=== PATIENT | female | born 1985 | race Caucasian/White ===

== ENCOUNTER → 2018-06-10 | Outpatient (CLI) | payer OTHER ==
--- NOTE | 2018-06-10 16:16 | RADIOLOGY REPORT (SQ) ---
EXAM DESCRIPTION: NM HIDA SCAN WITH CCK COMPLETED DATE/TIME: 06/10/2018 3:04 pm REASON FOR STUDY: R10.11 RIGHT UPPER QUADRANT PAIN R10.11 RIGHT UPPER QUADRANT PAIN COMPARISON: None. RADIONUCLIDE AND DOSE: DOSAGE RADIONUCLIDE: 5.21 millicuries Tc99m Mebrofenin. DOSAGE CCK: 1.6 micrograms. DOSAGE MORPHINE: Not required. The route of agent administration: Intravenous TECHNIQUE: Serial imaging right upper quadrant up to 60 minutes following injection of radionuclide. CCK injected after gallbladder visualized. LIMITATIONS: None. FINDINGS: LIVER: Normal visualization without areas of photopenia. INTRAHEPATIC BILE DUCTS: Normal size and no delay in visualization. COMMON BILE DUCT: Normal without dilatation. GALLBLADDER: Normal visualization. Calculated ejection fraction of 86%. Normal range is greater th an 35%. PHYSICAL RESPONSE: Patients presenting complaint was reproduced. OTHER: No other significant finding. IMPRESSION: Although CCK injection replicated the patient is presenting complaint, gallbladder eject ion fraction is normal. TECHNICAL DOCUMENTATION: JOB ID: [id number] [employer]- All Rights Reserved Reading location - IP/workstation name: [email or web address]
== END ==
LOC: RAD 13:27
PROVIDERS: ATTEND Physician Assistant Medical
DX: R10.11 Right upper quadrant pain (principal)
CPT/HCPCS: 78227; J2805; A9537

== ENCOUNTER 2019-12-30 16:44 | Emergency (ER) | payer OTHER ==
[2019-12-30 16:50] VITALS: BP 130/86
--- NOTE | 2019-12-30 16:56 | ER Document Report ---
ED Medical Screen (RME) - General Chief Complaint: Abdominal Pain Stated Complaint: ABDOMINAL PAIN Time Seen by Provider: 12/30/19 16:50 Primary Care Provider: RUKHSANA MCFARLAND DO [Primary Care Provider] - Follow up as needed Mode of Arrival: Ambulatory Information source: Patient Notes: Patient reports sneezing 2 hours ago and developing left upper quadrant tender ness. Patient denies any shortness of breath or lightheadedness. Patient does complain of increased pain with movement or deep inspiration. hx: RA, endometriosis, insulin resistance, hypothyroidism I have greeted and performed a rapid initial assessment of this patient. A comprehensive ED assessment and evaluation of the patient, analysis of test results and completion of the medical decision making process will be conducted by additional ED providers. TRAVEL OUTSIDE OF THE [place] IN LAST 30 DAYS: No - Related Data Allergies/Adverse Reactions: sulfamethoxazole [From Bactrim] Allergy (Severe, Verified 12/30/19 16:50) Anaphylaxis trimethoprim [From Bactrim] Allergy (Severe, Verified 12/30/19 16:50) Anaphylaxis morphine [Morphine] Allergy (Intermediate, Verified 12/30/19 16:50) Swelling of hands and/or feet dulaglutide [From Trulicity] Adverse Reaction (Verified 12/30/19 16:50) Vomiting liraglutide [From Victoza] Adverse Reaction (Verified 12/30/19 16:50) VOMITING Past Medical History - Past Medical History Cardiac Medical History: Denies: Hx Coronary Artery Disease, Hx Heart Attack, Hx Hypertension Pulmonary Medical History: Denies: Hx Asthma, Hx Bronchitis, Hx COPD, Hx Pneumonia Neurological Medical History: Denies: Hx Cerebrovascular Accident, Hx Seizures Endocrine Medical History: Reports: Hx Hypothyroidism Musculoskeltal Medical History: 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, Reports Hx Musculoskeletal Deformity - multiple joints painfull and swelling Past Surgical History: Denies: Hx Hysterectomy - Immunizations Immunizations up to date: Yes Hx Diphtheria, Pertussis, Tetanus Vaccination: No Physical Exam - Vital signs Vitals: Temp Pulse Resp BP Pulse Ox 98.0 F 107 H 20 130/86 H 95 12/30/19 16:49 12/30/19 16:49 12/30/19 16:49 12/30/19 16:49 12/30/19 16:49 - Abdominal Tenderness: Tender - Left upper quadrant tenderness Course - Vital Signs Vital signs: Temp Pulse Resp BP Pulse Ox 98.0 F 107 H 20 130/86 H 95 12/30/19 16:49 12/30/19 16:49 12/30/19 16:49 12/30/19 16:49 12/30/19 16:49 Doctor's Discharge - Discharge Referrals: RUKHSANA MCFARLAND, [Primary Care Provider] - Follow up as needed
--- NOTE | 2019-12-30 17:24 | RADIOLOGY REPORT (SQ) ---
EXAM DESCRIPTION: CHEST 2 VIEWS IMAGES COMPLETED DATE/TIME: 12/30/2019 5:11 pm REASON FOR STUDY: LUQ pain COMPARISON: None. EXAM PARAMETERS: NUMBER OF VIEWS: two views TECHNIQUE: Digital Frontal and Lateral radiographic views of the chest acquired. RADIATION DOSE: NA LIMITATIONS: none FINDINGS: LUNGS AND PLEURA: No opacities, masses or pneumothorax. No pleural effusion. MEDIASTINUM AND HILAR STRUCTURES: No masses or contour abnormalities. HEART AND VASCULAR STRUCTURES: Heart normal size. No evidence for failure. BONES: No acute findings. HARDWARE: None in the chest. OTHER: No other significant finding. IMPRESSION: NO ACUTE RADIOGRAPHIC FINDING IN THE CHEST. TECHNICAL DOCUMENTATION: JOB ID: [id number] [place]-72 2010 [employer]- All Rights Reserved Reading location - IP/workstation name: [email or web address]
[2019-12-30 17:55] LABS: ABSOLUTE BASOPHILS # (AUTO) 0.1 10^3/uL (0.0-0.2); ABSOLUTE EOSINOPHILS # (AUTO) 0.3 10^3/uL (0.0-0.6); ABSOLUTE LYMPHOCYTES (AUTO) 2.7 10^3/uL (0.5-4.7); ABSOLUTE MONOCYTES (AUTO) 0.6 10^3/uL (0.1-1.4); ABSOLUTE NEUT (AUTO) 4.2 10^3/uL (1.7-8.2); BASOPHILS % (AUTO) 0.6 % (0-2); EOSINOPHILS % (AUTO) 3.3 % (0-6); HEMATOCRIT 42.5 % (36.0-47.0); HEMOGLOBIN 14.7 g/dL (12.0-15.5); MEAN CORPUSCULAR HEMOGLOBIN 31.1 pg (27.0-33.4); MEAN CORPUSCULAR HGB CONC 34.6 g/dL (32.0-36.0); MEAN CORPUSCULAR VOLUME 90 fl (80-97); MONOCYTES % (AUTO) 7.7 % (3-13); PLATELET COUNT 324 10^3/uL (150-450); RED BLOOD COUNT 4.72 10^6/uL (3.72-5.28); RED CELL DISTRIBUTION WIDTH 14.5 % (11.5-14.0); SEGMENTED NEUTROPHILS % (AUTO) 53.4 % (42-78); TOTAL CELLS COUNTED % (AUTO) 100 %; WHITE BLOOD COUNT 7.9 10^3/uL (4.0-10.5)
[2019-12-30 18:17] LABS: ALBUMIN 4.4 g/dL (3.5-5.0); ALKALINE PHOSPHATASE 67 U/L (38-126); ANION GAP 10 (5-19); ASPARTATE AMINO TRANSFERASE 31 U/L (14-36); BILIRUBIN,DIRECT 0.3 mg/dL (0.0-0.4); BILIRUBIN,TOTAL 0.5 mg/dL (0.2-1.3); BLOOD UREA NITROGEN 8 mg/dL (7-20); CALCIUM 9.6 mg/dL (8.4-10.2); CARBON DIOXIDE 24 mmol/L (22-30); CHLORIDE 105 mmol/L (98-107); GLUCOSE 113 mg/dL (75-110); POTASSIUM 3.8 mmol/L (3.6-5.0); TOTAL PROTEIN 7.4 g/dL (6.3-8.2)
[2019-12-30] MEDS ORDERED: KETOROLAC TROMETHAMINE 60 MG/2 ML SDV IM ONE (19:54)
--- NOTE | 2019-12-30 19:58 | ER Document Report ---
Entered by DAVE RODRIGUEZ SCRIBE 12/30/191948 Acting as scribe for:SABRINA CHAVARRIA DO ED General - General Chief Complaint: Abdominal Pain Stated Complaint: ABDOMINAL PAIN Time Seen by Provider: 12/30/19 16:50 Primary Care Provider: RUKHSANA MCFARLAND DO [Primary Care Provider] - Follow up as needed Mode of Arrival: Ambulatory Information source: Patient Notes: This 34 year old female patient presents to the emergency department today with complaints of LUQ pain below her chest. Patient states she was sitting on her couch earlier today, sneezed, then felt pain in her left ribs. Patient states she slid off the couch and relieved some of the pain, but states it is flume tender and pain is reproducible with deep breaths or movement of her chest. Denies back pain, fever, chills, or covid exposure the past few weeks. TRAVEL OUTSIDE OF THE [place] IN LAST 30 DAYS: No - Related Data Allergies/Adverse Reactions: sulfamethoxazole [From Bactrim] Allergy (Severe, Verified 12/30/19 16:50) Anaphylaxis trimethoprim [From Bactrim] Allergy (Severe, Verified 12/30/19 16:50) Anaphylaxis morphine [Morphine] Allergy (Intermediate, Verified 12/30/19 16:50) Swelling of hands and/or feet dulaglutide [From Trulicity] Adverse Reaction (Verified 12/30/19 16:50) Vomiting liraglutide [From Victoza] Adverse Reaction (Verified 12/30/19 16:50) VOMITING Home Medications: Synthorid 100 mcg. Methotrexate 2.4mg 4 tablets q7days. Jelzan 11 mg daily. folic acid 10 mg daily. Vitamin D 3000 units. Vitamin C 500 mg. biotin Past Medical History - General Information source: Patient - Social History Smoking Status: Never Smoker Cigarette use (# per day): No Chew tobacco use (# tins/day): No Frequency of alcohol use: None Drug Abuse: None Family History: Arthritis, CVA, DM, Hypertension, Thyroid Disfunction Patient has homicidal ideation: No Endocrine Medical History: Reports: Hx Hypothyroidism GI Medical History: Reports: Hx Gastroesophageal Reflux Disease, Hx Hiatal Hernia Musculoskeletal Medical History: 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, Reports Hx Musculoskeletal Deformity - multiple joints painfull and swelling Past Surgical History: Reports: Hx Abdominal Surgery - hermia repair, Hx Section - Immunizations Immunizations up to date: Yes Hx Diphtheria, Pertussis, Tetanus Vaccination: No Review of Systems - Review of Systems Constitutional: See HPI. denies: Chills, Fever EENT: No symptoms reported Cardiovascular: No symptoms reported Respiratory: No symptoms reported Gastrointestinal: See HPI Genitourinary: No symptoms reported Female Genitourinary: No symptoms reported Musculoskeletal: See HPI, Muscle pain - L ribs. denies: Back pain Skin: No symptoms reported Hematologic/Lymphatic: No symptoms reported Neurological/Psychological: No symptoms reported -: Yes All other systems reviewed and negative Physical Exam - Vital signs Vitals: Temp Pulse Resp BP Pulse Ox 98.0 F 107 H 20 130/86 H 95 12/30/19 16:49 12/30/19 16:49 12/30/19 16:49 12/30/19 16:49 12/30/19 16:49 - General General appearance: Appears well, Alert - HEENT Head: Normocephalic, Atraumatic Eyes: Normal Pupils: PERRL - Respiratory Respiratory status: No respiratory distress Breath sounds: Normal Notes: Tenderness with palpation to the left costal margin of the anterior chest. Reproducible tenderness with movement of the chest or deep breaths. - Cardiovascular Rhythm: Regular Heart sounds: Normal auscultation Murmur: No - Abdominal Inspection: Normal Distension: No distension Bowel sounds: Normal Tenderness: Nontender - Extremities General upper extremity: Normal inspection, Normal ROM General lower extremity: Normal inspection, Normal ROM. No: Edema - Neurological Neuro grossly intact: Yes Cognition: Normal Orientation: AAOx4 Burt Coma Scale Eye Opening: Spontaneous Burt Coma Scale Verbal: Oriented Burt Coma Scale Motor: Obeys Commands Burt Coma Scale Total: 15 Speech: Normal Sensory: Normal - Psychological Associated symptoms: Normal affect, Normal mood - Skin Skin Temperature: Warm Skin Moisture: Dry Skin Color: Normal Course - Vital Signs Vital signs: Temp Pulse Resp BP Pulse Ox 98.0 F 107 H 20 130/86 H 95 12/30/19 16:49 12/30/19 16:49 12/30/19 16:49 12/30/19 16:49 12/30/19 16:49 - Laboratory Result Diagrams: 12/30/19 17:07 12/30/19 17:07 Laboratory results interpreted by me: 12/30/19 12/30/19 17:07 17:07 RDW 14.5 H Glucose 113 H Discharge - Discharge Clinical Impression: Muscle strain Condition: Stable Disposition: HOME, SELF-CARE Instructions: Abdominal Pain ([facility]) Additional Instructions: Rest, ice and alternate ice and heat as described. Please return here for increased pain, fever, other problems or concerns. Medicine has been sent to [facility]. Prescriptions: Cyclobenzaprine HCl [Flexeril 10 mg Tablet] 10 mg PO TIDP PRN #15 tab PRN Reason: Ibuprofen [Ibu] 600 mg PO TID #30 tablet Referrals: RUKHSANA MCFARLAND DO [Primary Care Provider] - Follow up as needed I personally performed the services described in the documentation, reviewed and edited the documentation which was dictated to the scribe in my presence, and it accurately records my words and actions.
== END 2019-12-30 21:06 | disposition home or self-care (01) ==
LOC: ER 16:44
DX: T14.8XXA Other injury of unspecified body region, initial encounter (principal); X58.XXXA Exposure to other specified factors, initial encounter; R10.12 Left upper quadrant pain; R06.7 Sneezing; M79.18 Myalgia, other site; R07.1 Chest pain on breathing; E03.9 Hypothyroidism, unspecified; M06.9 Rheumatoid arthritis, unspecified; Z79.899 Other long term (current) drug therapy; Z87.892 Personal history of anaphylaxis; Z88.1 Allergy status to other antibiotic agents; Z88.6 Allergy status to analgesic agent; Z88.5 Allergy status to narcotic agent
CPT/HCPCS: 36415; 71046; 80053; 85025; 96372; 99284